=== PATIENT | male | born 1960 | race African-American/Black ===

== ENCOUNTER 2021-11-24 13:07 | Emergency (ER) | payer MEDICAID, OTHER ==
[~2021-11-24] VITALS: Ht 182.9 cm; Wt 80.0 kg
[~2021-11-24 13:07] MED LIST: AMLO5TAB88; BENA20TA10; GABA-529; VALIUM
[2021-11-24 13:14] VITALS: BP 125/91
== END 2021-11-24 20:02 | disposition left against medical advice (07) ==
LOC: ER 13:07
DX: R11.2 Nausea with vomiting, unspecified (principal); Z53.21 Procedure and treatment not carried out due to patient leaving prior to being seen by health care provider

== ENCOUNTER 2022-01-16 12:49 | Emergency (ER) | payer MEDICAID ==
[~2022-01-16] VITALS: Ht 180.3 cm; Wt 82.0 kg
[2022-01-16 12:52] VITALS: BP 149/77
== END 2022-01-16 13:15 | disposition home or self-care (01) ==
LOC: ER 13:02
DX: T51.0X1A Toxic effect of ethanol, accidental (unintentional), initial encounter (principal); G92.8 Other toxic encephalopathy; I10 Essential (primary) hypertension; Y92.488 Other paved roadways as the place of occurrence of the external cause
CPT/HCPCS: 99283

== ENCOUNTER 2022-01-21 16:16 | Emergency (ER) | payer MEDICAID ==
[~2022-01-21] VITALS: Ht 172.7 cm; Wt 75.0 kg
[2022-01-21 16:23] VITALS: BP 153/71
[2022-01-21] MEDS ORDERED: DICYCLOMINE 10 MG/5 ML ORAL SYR PO STA (18:32)
[2022-01-21] MEDS ORDERED: MAGNESIUM/ALUMINUM HYDROXIDE/SIMETHICONE 30ML UDC PO STA (18:32)
[2022-01-21] MEDS ORDERED: FAMOTIDINE 20MG TABLET PO ONE (18:45)
[2022-01-21 19:00] LABS: BASOPHILS % 0.5 % (0.0-2.0); EOSINOPHILS % 0.5 % (0.0-5.0); HEMATOCRIT. 36.5 % (42.0-52.0); HEMOGLOBIN. 12.5 g/dL (14.0-18.0); LYMPHOCYTES % 37.9 % (20.0-50.0); MEAN CORPUSCULAR HEMOGLOBIN 31.4 pg (28.0-32.0); MEAN CORPUSCULAR VOLUME 91.9 fL (80.0-94.0); MONOCYTES % 6.4 % (2.0-8.0); NEUTROPHILS % 54.7 % (40.0-76.0); PLATELET 211 x1000/uL (130-400); RED BLOOD CELL COUNT 3.97 mill/uL (4.7-6.1)
[2022-01-21 19:06] LABS: CHLORIDE 104 mEq/L (98-107)
[2022-01-21] MEDS ORDERED: BO1 TP (21:12)
== END 2022-01-21 21:54 | disposition home or self-care (01) ==
LOC: ER 16:16
DX: T51.0X1A Toxic effect of ethanol, accidental (unintentional), initial encounter (principal); G92.8 Other toxic encephalopathy; R00.0 Tachycardia, unspecified; I10 Essential (primary) hypertension; Y90.9 Presence of alcohol in blood, level not specified; F17.210 Nicotine dependence, cigarettes, uncomplicated; Y92.488 Other paved roadways as the place of occurrence of the external cause
CPT/HCPCS: 36415; 80053; 84484; 85025; 93005; 99284